=== PATIENT | female | born 1935 | race Caucasian/White ===

== ENCOUNTER 2017-04-06 09:36 | Inpatient (IN) ==
[2017-04-06] MEDS ORDERED: 0.9 % Sodium Chloride 500 ML IVC SCH (10:00)
[2017-04-06] MEDS ORDERED: CeFAZolin Pre 2,000 MG/100 ML 2,000 MG/100 ML BAG IVPB ONE (10:00)
[2017-04-06] MEDS ORDERED: Dexamethasone 4 MG/ML VIAL ONE (10:06)
[2017-04-06] MEDS ORDERED: *HR* Succinylcholine 200 MG/10 ML VIAL IVP ONE (10:06)
[2017-04-06] MEDS ORDERED: *HR* Midazolam HCl 2 MG/2 ML VIAL ONE (10:06)
[2017-04-06] MEDS ORDERED: Lidocaine -MPF 4% 5 ML AMPUL ONE (10:06)
[2017-04-06] MEDS ORDERED: *HR* Propofol 200 MG/20 ML VIAL IVP ONE (10:06)
[2017-04-06] MEDS ORDERED: *HR* FentaNYL (PF) 100 MCG/2 ML VIAL ONE (10:06)
[2017-04-06] MEDS ORDERED: Ondansetron 4 MG/2 ML VIAL ONE (10:06)
[2017-04-06] MEDS ORDERED: *HR* Rocuronium Bromide 50 MG/5 ML VIAL ONE (10:06)
[2017-04-06] MEDS ORDERED: Lidocaine -MPF 2% 2 ML VIAL ONE ×2 (10:06→11:21)
[2017-04-06] MEDS ORDERED: *HR* Remifentanil 2 MG VIAL IVP ONE (10:34)
[2017-04-06] MEDS ORDERED: Heparin 1,000 UNITS/500 mL NS 0 ML ONE (10:37)
[2017-04-06] MEDS ORDERED: EPHEDrine 50 MG/ML VIAL ONE (10:41)
[2017-04-06] MEDS ORDERED: *HR* Heparin 5,000 UNIT/ML VIAL ONE ×2 (10:41→13:52)
[2017-04-06] MEDS ORDERED: Heparin 1,000 UNITS/500 mL NS 500 ML ONE (10:46)
[2017-04-06] MEDS ORDERED: Lidocaine 1% 20 ML MDV ONE (10:47)
--- NOTE | 2017-04-06 10:50 | Anesthesia Evaluation PreOp ---
Date of Encounter: 04/06/17 Time of Encounter: 10:50 - Past History Planned Operation: right carotid endarterectomy Cardiac History: HTN, Hyperlipidemia Pulmonary History: Former smoker [employer] History: Denies Any Significant HX, Other (HEARING LOSS) Other Medical History: Renal (Stage III CKD) Anesthesia History: No Prior Anesthetic Complications, Past Anesthesia Alcohol Use: none Drug use: none Medications and Allergies Cholecalciferol (Vitamin D3) [Vitamin D3] 2,000 unit PO DAILY 03/12/17 [History] Metoprolol Tartrate [Lopressor] 75 mg PO BID 03/12/17 [History] Olmesartan Medoxomil [Benicar] 40 mg PO DAILY 03/12/17 [History] Raloxifene [Evista] 60 mg PO DAILY 03/12/17 [History] Simvastatin [Zocor] 20 mg PO DAILY 03/12/17 [History] hydroCHLOROthiazide [Hydrochlorothiazide] 25 mg PO DAILY 03/12/17 [History] 3 Allergy/AdvReac Type Severity Reaction Status Date / Time No Known Allergies Allergy Verified 04/06/17 10:11 - Meds/Allergy Pre-op Review Medications Reviewed: Yes Allergies Reviewed: Yes Beta Blockers on Current Med List: Yes ([id number]) Anesthesia Results - Imaging EKG: report reviewed, image reviewed (sinus rhythm, first degree AV block) Anesthesia Exam Selected Entries 04/06/17 10:18 Temperature 98.4 F Pulse Rate 54 Respiratory Rate 18 Blood Pressure 143/61 O2 Sat by Pulse Oximetry 99 Weight: 72 kg NPO (# of Hours): over 8 hours - HEENT Pupil (Motor): Pupils equal Mallampati: II Teeth: Edentulous Oral Opening: Less than or equal to 3 - Cardiac Rhythm: Regular Murmur: None - Pulmonary Breath Sounds: bilateral Clear Respiratory Effort: Symmetrical Anesthesia Assess/Plan ASA Score: 3 Modified [place] Scale for Level of Consciousness: Cooperative, oriented, and tranquil Anesthetic Plan: General Monitoring Plan: Standard Monitors, A-Line Recovery Plan: PACU
--- NOTE | 2017-04-06 11:35 | History & Physical Report ---
Date of Encounter: 04/06/17 Time of Encounter: 11:34 24 Hour HP Update - Instructions Instructions: If the History and Physical is less than 30 days old and was completed prior to A.M. admission and or procedure and has NOT been updated on calendar day of procedure please complete this update prior to performing procedure. - Update Patient reports changes in Medical Condition: No Changes in examination, assessment, or condition: No Changes in Medication: No Preop tests/diagnostics Reviewed: Yes Surgery Remains Indicated: Yes Consent for Planned Operative Procedure(s) Verified: Yes - Pre-Operative Checklist Preoperative Checklist Indicated: Yes Prophylactic Antibiotic Ordered: Yes Home Medications Include Beta Natalia: Yes Beta Natalia Taken Today (Day of Surgery): Yes Beta Natalia Taken Yesterday (Day Prior to Surgery): Yes Is VTE Prophylaxis Indicated?: Yes
[2017-04-06] MEDS ORDERED: Lacri-Lube 3.5 GM TUBE ONE (12:07)
--- NOTE | 2017-04-06 13:08 | Anesthesia Procedures ---
Date of Encounter: 04/06/17 Time of Encounter: 11:35 Procedures: Anesthesia - Arterial Line Consent obtained: verbal consent Time out performed: Yes Sedation: Versed (mg): 1 Supplemental Oxygen via Nasal Cannula (L/min): 2 Local Anesthetic: Lidocaine 1% Amount of Anesthetic used (mls): 0.5 Size (Gauge): 20 Length (inches): 1 3/4 Technique Used: sterile prep, direct puncture technique Post-Procedure: line taped into place, dry sterile dressing placed Patient tolerated procedure: well, no complications Complications: none Site: Radial L Vitals: Vital Signs/O2 Sat/Glucose, Most Recent Temp Pulse Resp BP Pulse Ox 98.4 F 63 16 175/75 98 04/06/17 10:18 04/06/17 11:43 04/06/17 11:43 04/06/17 11:43 04/06/17 11:43 Blood Glucose* 93 Comments: placed by SRNA. [facility]
[2017-04-06] MEDS ORDERED: Ondansetron 4 MG/2 ML VIAL IVP ONE (13:09)
[2017-04-06] MEDS ORDERED: *HR* Morphine 2 MG/ML SYRINGE IVP PRN ×2 (13:09→15:35)
[2017-04-06] MEDS ORDERED: Dexamethasone 4 MG/ML VIAL IVP ONE (13:09)
[2017-04-06] MEDS ORDERED: *HR* Labetalol 20 MG/4 ML SYRINGE IVP PRN (13:09)
--- NOTE | 2017-04-06 14:34 | Operative Note ---
Date of procedure: 04/06/17 Pre-op diagnosis: right carotid stenosis Post-op diagnosis: same Procedure: right carotid endarterectomy with 8 Fr. shunt and patch angioplasty wioth Pauly Complications: none Anesthesia: AGAPITOA Surgeon: Juan Alberto Lomax Estimated blood loss (cc): 100 Specimen: none Condition: stable Disposition: PACU Procedure in Detail: History Becca Rucker is an 81-year-old white female who was seen in the outpatient office for dizziness and abnormal duplex scan. She went on to have a carotid artery angiogram. This revealed a high-grade lesion in the right internal carotid artery. She now comes to the operating room for repair of this lesion. Procedure After informed consent was obtained the patient was taken to the operating room. General endotracheal anesthesia was established under arterial line guidance. The right neck was sterilely prepped and draped. A timeout protocol was observed. An oblique incision was made on the right neck. Dissection was carried down to the carotid sheath. The contents of the carotid sheath were identified and the nervous structures were preserved. Selective control obtained of the carotid vessels. 5000 units of heparin were administered intravenously. After 3 minute delay the vessels were clamped with the internal carotid artery clamped first. An 11 blade knife and Garcia scissors were used to open the carotid artery. An 8 Romanian shunt was then inserted atraumatically. Patency of the shunt was confirmed by the use of intraoperative Doppler. Evaluation of the plaque revealed a very dense plaque. There is a high-grade lesion in the internal carotid artery as depicted on the angiogram. The plaque also extended proximally into the common carotid level. An endarterectomy was then begun at the distal common carotid artery. The plaque was dissected circumferentially. The plaque was then excised. The endpoint on the internal carotid artery was smooth. The superior thyroid and external carotid artery orifice were also endarterectomized. The bed of the vessel was then inspected for any residual debris. A patch angioplasty was then performed using a Hemashield patch and 2 6-0 Prolene sutures. Leaving a small space open on the suture line the shunt was clamped divided and removed. The final few sutures were placed. The internal carotid was allowed to backbleed and reclamped. The external and common were opened and then finally the internal carotid artery was reopened. The patient had no hemodynamic distress with this maneuver. Excellent pulses and Doppler signals were identified throughout the carotid system. Hemostasis was achieved. A superficial cervical block using half percent Marcaine was performed. The wound was then closed in layers using absorbable suture. The patient tolerated the procedure well. There were no intraoperative complications. The patient was extubated in the operating room and taken to the recovery room in stable condition.
[2017-04-06] MEDS ORDERED: *HR* HYDROcodone/Acet 5/325 mg TABLET PO PRN (15:35)
[2017-04-06] MEDS ORDERED: Naloxone 0.4 MG/ML INJ IVP PRN (15:35)
[2017-04-06] MEDS ORDERED: Acetaminophen 325 MG TABLET PO PRN (15:35)
[2017-04-06 16:09] LABS: Basophils % 0.3 %; Eosinophils # 0.1 K/mcL (0.0-0.6); Eosinophils % 0.6 %; Hematocrit 33.9 % (35.3-44.9); Hemoglobin 11.4 g/dL (11.5-15.4); Immature Granulocytes % 0.5 % (0-4); Lymphocytes # 1.3 K/mcL (0.6-4.6); Lymphocytes % 17.2 %; Mean Corpuscular HGB Conc 33.6 g/dL (31.6-35.5); Mean Corpuscular Volume 92.1 fL (83.0-100.0); Mean Platelet Volume 13.6 fL (9.4-12.4); Monocytes # 0.1 K/mcL (0.0-1.3); Monocytes % 0.9 %; Neutrophils # 6.2 K/mcL (1.6-8.9); Platelet Count 116 K/mcL (140-400); Red Blood Count 3.68 M/mcL (3.82-4.97); Red Cell Distribution Width 12.5 % (11.5-14.5); Segmented Neutrophils % 80.5 %
[2017-04-06] MEDS ORDERED: 0.9 % Sodium Chloride 500 ML ONE (16:14)
[2017-04-06] MEDS: ceFAZolin 2,000 MG in D5% in Water 100 ML IVPB SCH ×2 (16:24→23:22)
[2017-04-07 05:55] LABS: Basophils % 0.1 %; Hemoglobin 11.5 g/dL (11.5-15.4); Immature Granulocytes % 0.7 % (0-4); Lymphocytes # 1.4 K/mcL (0.6-4.6); Lymphocytes % 9.5 %; Mean Corpuscular HGB Conc 33.8 g/dL (31.6-35.5); Mean Corpuscular Hemoglobin 30.9 pg (28.0-33.3); Mean Corpuscular Volume 91.4 fL (83.0-100.0); Mean Platelet Volume 14.1 fL (9.4-12.4); Monocytes # 0.6 K/mcL (0.0-1.3); Monocytes % 4.2 %; Neutrophils # 12.6 K/mcL (1.6-8.9); Platelet Count 130 K/mcL (140-400); Red Blood Count 3.72 M/mcL (3.82-4.97); Red Cell Distribution Width 12.4 % (11.5-14.5); Segmented Neutrophils % 85.5 %
[2017-04-07 05:58] LABS: Calcium 8.7 mg/dL (8.6-10.8); Potassium 4.1 mEq/L (3.5-4.5)
[2017-04-07] MEDS: ceFAZolin 2,000 MG in D5% in Water 100 ML IVPB SCH (07:52)
[2017-04-07] MEDS ORDERED: Cholecalciferol (D-3) 1,000 UNIT TABLET PO SCH (09:00)
[2017-04-07] MEDS ORDERED: hydroCHLOROthiazide 25 MG TABLET PO SCH (09:00)
[2017-04-07] MEDS ORDERED: OLMESARTAN MEDOXOMIL 40 MG PO SCH (09:00)
[2017-04-07 10:46] VITALS: BP 125/57
--- NOTE | 2017-04-07 12:16 | Discharge Summary ---
Date of Encounter: 04/07/17 Time of Encounter: 12:14 - Discharge Diagnosis (1) Carotid stenosis, bilateral Priority: Primary Status: Acute Comments: Patient has abnormal carotid duplex scan which led to referral to vascular surgery. This then led to an angiogram which demonstrated a high-grade right internal carotid artery stenosis. Patient was then admitted for right carotid endarterectomy. (2) Hyperlipidemia Priority: Secondary Status: Chronic Comments: Patient has hyperlipidemia which is controlled medically. Qualifiers: Hyperlipidemia type: unspecified Qualified Code(s): E78.5 - Hyperlipidemia , unspecified (3) Hypertension Priority: Secondary Status: Chronic Comments: Patient has chronic hypertension which is controlled medically Qualifiers: Hypertension type: essential hypertension Qualified Code(s): I10 - Essential (primary) hypertension - Discharge Medications Home Medications: Cholecalciferol (Vitamin D3) [Vitamin D3] 2,000 unit PO DAILY 03/12/17 [History] Metoprolol Tartrate [Lopressor] 75 mg PO BID 03/12/17 [History] Olmesartan Medoxomil [Benicar] 40 mg PO DAILY 03/12/17 [History] Raloxifene [Evista] 60 mg PO DAILY 03/12/17 [History] Simvastatin [Zocor] 20 mg PO DAILY 03/12/17 [History] hydroCHLOROthiazide [Hydrochlorothiazide] 25 mg PO DAILY 03/12/17 [History] Allergies/Adverse Reactions: 3 Allergy/AdvReac Type Severity Reaction Status Date / Time No Known Allergies Allergy Verified 04/06/17 10:11 Date of admission: 04/06/17 13:57 Primary care physician: Gayathri Cedeño CNP Consults: 04/06/17 15:48 Consult to Financial Compliance Manager [CONS] Routine Reason for SW Consult: 81 living alone. One floor house Procedure(s) Performed: Right carotid endarterectomy with patch angioplasty Discharging clinician: Juan Alberto Lomax Anticipated date of discharge: 04/07/17 - Patient Status Disposition: Home, Self-Care Condition: Good Functional capacity at discharge: independent ambulation Overall status at discharge: patient is progressing back to baseline - Discharge Instructions Follow Up With: Gayathri Cedeño CNP [Primary Care Provider] - 04/12/17 11:00 am () Juan Alberto Lomax MD [Partnered Physician] - 04/28/17 10:30 am Additional Instructions: No lifting greater than 10 pounds. Keep right neck incision dry for total of 5 days following surgery. Resume usual home medications. - Diet and Activity Activity: increase activity as tolerated Diet: advance to your usual diet - Hospital Course Hospital course: Ms. Rucker is a 81 year old female With known right carotid artery stenosis. She had undergone an angiogram in February. The patient was admitted for elective right carotid endarterectomy. This was performed under general endotracheal anesthesia. The patient had no periprocedural complications. She was doing well postoperative day #1. She was neurologically intact. She was felt ready for discharge to home on the afternoon of postoperative day #1. Instructions regards to her activities and medications and wound care were reviewed with the patient and her family prior to discharge. - Time Spent with Patient Total time spent providing and/or coordinating discharge services: Exam Vital Signs, Last 4 Hours Temp Pulse Resp BP Pulse Ox 04/07/17 10:45 97.6 F 73 14 125/57 99 General: Present: Conversant, No Apparent Distress, Well developed, Well nourished HEENT: Present: Atraumatic, Normocephaly, Trachea midline, Pupils equal Neck: Absent: JVD, Midline deformity, Tracheal deviation Cardiac: Present: Reg Rate and Rhythm Neuro: Present: Alert and responsive, No focal deficits noted, Cranial nerves grossly intact, Motor nerves grossly intact, Sensory nerves grossly intact Vascular: Present: Surgical incisions (Right neck surgical incision is clean and dry.) Skin: Present: No rashes noted on visualized skin - VTE Documentation of Mechanical Device: Graduated compression elastic hosiery
== END 2017-04-07 12:36 | disposition home or self-care (01) | DRG 39 ==
LOC: SAMDAY 09:36 → 2NNU 13:57
PROVIDERS: ADMIT Surgery Vascular Surgery; ATTEND Surgery Vascular Surgery